=== PATIENT | male | born 1985 | race American Indian/Alaskan Native ===

== ENCOUNTER 2018-04-04 18:45 | Emergency (ER) | payer BC ==
[2018-04-04 19:06] VITALS: TEMP 99.4
[2018-04-04] MEDS ORDERED: Sodium Chloride 0.9% 1,000 ML IV STA (19:44)
--- NOTE | 2018-04-04 20:23 | ED PDOC ---
Arrival/HPI - General Chief Complaint: GI Problem Time Seen by Provider: 04/04/18 19:39 Historian: Patient - History of Present Illness Narrative History of Present Illness (Text): 04/04/18 19:40 Chuyita Alvarado is a 32 year old male, with no significant past medical history, who presents to the Emergency Department complaining of nausea, vomiting, and diarrhea since yesterday after eating a sausage sandwich. Patient also reports some diffuse abdominal cramping. Patient denies any fever, chills, chest pain, shortness of breath, urinary symptoms, back pain, neck pain, headache, dizziness, or any other complaints. Symptom Onset: Gradual Symptom Course: Unchanged Activities at Onset: Light Context: Home Past Medical History - Provider Review Nursing Documentation Reviewed: Yes - Infectious Disease Hx of Infectious Diseases: None - Psychiatric Hx Substance Use: No - Anesthesia Hx Anesthesia: No Family/Social History - Physician Review Nursing Documentation Reviewed: Yes Family/Social History: Unknown Family HX Smoking Status: Unknown If Ever Smoked Hx Alcohol Use: No Hx Substance Use: No Allergies/Home Meds Allergies/Adverse Reactions: Allergies No Known Allergies Allergy (Verified 04/04/18 19:06) Review of Systems - Physician Review All systems were reviewed & negative as marked: Yes - Review of Systems Constitutional: Normal. absent: Fevers Eyes: Normal ENT: Normal Respiratory: Normal. absent: SOB, Cough Cardiovascular: Normal Gastrointestinal: Abdominal Pain, Diarrhea, Nausea, Vomiting Genitourinary Male: Normal. absent: Dysuria, Frequency, Hematuria, Urinary Output Changes Musculoskeletal: Normal. absent: Back Pain Skin: Normal. absent: Rash Neurological: Normal. absent: Headache, Dizziness Endocrine: Normal Hemo/Lymphatic: Normal Psychiatric: Normal Physical Exam Vital Signs Reviewed: Yes Vital Signs Temp Pulse Resp BP Pulse Ox 04/04/18 19:03 99.4 F 72 18 168/90 H 99 Temperature: Afebrile Blood Pressure: Hypertensive Pulse: Regular Respiratory Rate: Normal Appearance: Positive for: Well-Appearing, Non-Toxic, Comfortable Pain Distress: None Mental Status: Positive for: Alert and Oriented X 3 - Systems Exam Head: Present: Atraumatic, Normocephalic Pupils: Present: PERRL Extroacular Muscles: Present: EOMI Conjunctiva: Present: Normal Mouth: Present: Moist Mucous Membranes Neck: Present: Normal Range of Motion Respiratory/Chest: Present: Clear to Auscultation, Good Air Exchange. No: Respiratory Distress, Accessory Muscle Use Cardiovascular: Present: Regular Rate and Rhythm, Normal S1, S2. No: Murmurs Abdomen: No: Tenderness, Distention, Peritoneal Signs Back: Present: Normal Inspection Upper Extremity: Present: Normal Inspection. No: Cyanosis, Edema Lower Extremity: Present: Normal Inspection. No: Edema Neurological: Present: GCS=15, CN II-XII Intact, Speech Normal Skin: Present: Warm, Dry, Normal Color. No: Rashes Psychiatric: Present: Alert, Oriented x 3, Normal Insight, Normal Concentration Medical Decision Making ED Course and Treatment: 04/04/18 19:40 Impression: 32 year old male complaining of nausea, vomiting, diarrhea, and diffuse abdominal cramping since yesterday. Plan: -- Labs -- Urinalysis -- IV fluids -- Zofran -- Toradol -- Reassess and disposition Progress Notes: 04/05/18 00:41 US Abdomen Impression: No evidence of cholelithiasis or acute cholecystitis. - Lab Interpretations I have reviewed the lab results: Yes - RAD Interpretation Transportation Lead: Radiologist - Medication Orders Current Medication Orders: Sodium Chloride (Sodium Chloride 0.9%) 1,000 mls @ 999 mls/hr IV .Q1H1M STA Stop: 04/04/18 20:44 Discontinued Medications Ketorolac Tromethamine (Toradol) 30 mg IVP ONCE ONE Stop: 04/04/18 19:45 Ondansetron HCl (Zofran Inj) 4 mg IVP ONCE ONE Stop: 04/04/18 19:45 - Scribe Statement The provider has reviewed the documentation as recorded by the Herson Marsh Provider Scribe Attestation: All medical record entries made by the Scribe were at my direction and personally dictated by me. I have reviewed the chart and agree that the record accurately reflects my personal performance of the history, physical exam, medical decision making, and the department course for this patient. I have also personally directed, reviewed, and agree with the discharge instructions and disposition. Disposition/Present on Arrival - Present on Arrival Any Indicators Present on Arrival: No History of DVT/PE: No History of Uncontrolled Diabetes: No Urinary Catheter: No History of Decub. Ulcer: No History Surgical Site Infection Following: None - Disposition Have Diagnosis and Disposition been Completed?: Yes Diagnosis: Gastroenteritis Disposition Time: 01:35 Patient Plan: Discharge Condition: GOOD Discharge Instructions (ExitCare): Gastroenteritis (ED) Additional Instructions: Take meds as prescribed/advance diet slowly as tolerated/follow up with your doctor this week Prescriptions: Phenobarb/Hyoscy/Atropine/Scop [ Tablet] 16.2 mg PO Q6 PRN #12 tablet PRN Reason: Dyspepsia Ondansetron [Zofran Odt] 4 mg PO Q6 PRN #12 odt PRN Reason: Nausea/Vomiting Referrals: Mitchell Galdamez MD [Primary Care Provider] - Follow up with primary Forms: [employer] (Niuean)
[2018-04-04 20:46] LABS: HEMOGLOBIN 15.5 g/dL (14.0-18.0); MEAN CELL VOLUME 89.6 fl (80.0-105.0); MEAN CORPUSCULAR HEMOGLOBIN 31.5 pg (25.0-35.0); MEAN CORPUSCULAR HGB CONC 35.1 g/dl (31.0-37.0); MEAN PLATELET VOLUME 10.3 fl (7.0-11.0); RBC 4.92 10^6/uL (3.5-6.1); RED CELL DISTRIBUTION WIDTH 13.7 % (11.5-14.5); WHITE BLOOD COUNT 9.4 10^3/ul (4.5-11.0)
[2018-04-04 20:48] LABS: ALB/GLOB RATIO 1.4 (1.1-1.8); ALBUMIN 5.1 g/dL (3.0-4.8); ALT/SGPT 26 U/L (7-56); AST/SGOT 31 U/L (17-59); BLOOD UREA NITROGEN 12 mg/dL (7-21); CALCIUM 10.3 mg/dL (8.4-10.5); GFR NON-AFRICAN AMERICAN > 60; LIPASE 95 U/L (23-300)
[2018-04-04 21:29] LABS: URINE BILIRUBIN NEGATIVE (NEGATIVE); URINE BLOOD TRACE-INTACT (NEGATIVE); URINE GLUCOSE (UA) NEGATIVE (NEGATIVE); URINE LEUKOCYTE ESTERASE NEGATIVE Leu/uL (NEGATIVE); URINE PROTEIN 100 mg/dL (<30 mg/dL); URINE UROBILINOGEN 0.2 E.U./dL (<1 E.U./dL)
[2018-04-04 21:30] LABS: URINE APPEARANCE CLOUDY (CLEAR); URINE COLOR YELLOW (YELLOW)
[2018-04-04] MEDS ORDERED: Morphine 4 mg/ml ISec IVP STA (21:34)
[2018-04-04 21:37] LABS: URINE AMORPHOUS SEDIMENT MODERATE
[2018-04-05 01:51] VITALS: BP 138/80; PULSE 70; RESP 17; O2SAT 100
--- NOTE | 2018-04-05 09:44 | US ---
Date of service: 04/04/2018 HISTORY: Abdominal pain COMPARISON: None. TECHNIQUE: Grayscale imaging was performed. FINDINGS: LIVER: Measures 15.9 cm. There is mild diffuse increased echogenicity of the liver parenchyma. No mass. No intrahepatic bile duct dilatation. GALLBLADDER: There are no gallstones, wall thickening or pericholecystic fluid. The sonographic Mcdonald's sign is negative. COMMON BILE DUCT: Measures 4.7 mm. No stones. No dilatation. PANCREAS: Normal in size and echotexture. No mass. No ductal dilatation. RIGHT KIDNEY: Measures 10.2cm. Normal echogenicity. No calculus, mass, or hydronephrosis. LEFT KIDNEY: Measures 10.9cm. Normal echogenicity. No calculus, mass, or hydronephrosis. SPLEEN: Normal in size and contour. No mass. AORTA: No aneurysmal dilatation. IVC: Unremarkable. OTHER FINDINGS: None. IMPRESSION: Fatty liver. No cholelithiasis or biliary dilatation.
== END 2018-04-05 01:40 | disposition home or self-care (01) ==
LOC: ED 18:45
DX: K52.9 Noninfective gastroenteritis and colitis, unspecified (principal)
CPT/HCPCS: 76700; 80053; 81001; 83690; 85027; 96361; 96374; 96375; 99283; J1885; J2270; J2405; J7030